=== PATIENT | male | born 1970 | race Caucasian/White ===

== ENCOUNTER 2021-04-15 09:35 | Outpatient (CLI) | payer BC, SELFPAY ==
--- NOTE | 2021-04-15 11:00 | NEURO_ITS ---
Impression: # Complains of right hand numbness. # Right Carpal Tunnel Syndrome. # Right ulnar neuropathy across the elbow. # Normal needle/EMG exam. Nerve Conduction Studies Anti Sensory Summary Table Stim Site NR Peak (ms) P-T Amp (?V) Site1 Site2 Delta-P (ms) Dist (cm) [place] (m/s) Right Median Anti Sensory (2-3nd Digit) Wrist 4.6 28.7 Wrist 2-3nd Digit 4.6 14.0 30 Wrist 5.7 27.3 Wrist 2-3nd Digit 4.6 14.0 30 Right Radial Anti Sensory (Base 1st Digit) Wrist 2.8 23.2 Wrist Base 1st Digit 2.8 0.0 Right Ulnar Anti Sensory (5th Digit) Wrist 2.7 43.3 Wrist 5th Digit 2.7 14.0 52 Motor Summary Table Stim Site NR Onset (ms) O-P Amp (mV) Site1 Site2 Delta-0 (ms) Dist (cm) [place] (m/s) Right Median Motor (Abd Poll Brev) Wrist 4.8 5.0 Elbow Wrist 5.1 29.0 57 Elbow 9.9 4.7 Right Ulnar Motor (Abd Dig Minimi) Wrist 3.0 6.9 A Elbow Wrist 5.9 30.0 51 A Elbow 8.9 4.6 B Elbow Wrist 4.4 22.0 50 B Elbow 7.4 2.3 F Wave Studies NR F-Lat (ms) L-R F-Lat (ms) Right Median (Mrkrs) (Abd Poll Brev) 29.77 Right Ulnar (Mrkrs) (Abd Dig Min) 28.13 EMG Side Muscle Nerve Root Ins Act Fibs Amp Dur Recrt Comment Right 1stDorInt Ulnar C8-T1 Nml Nml Nml Nml Nml Right Ext Indicis Radial (Post Int) C7-8 Nml Nml Nml Nml Nml Right Ext Digitorum Radial (Post Int) C7-8 Nml Nml Nml Nml Nml Right BrachioRad Radial C5-6 Nml Nml Nml Nml Nml Right PronatorTeres Median C6-7 Nml Nml Nml Nml Nml Right Abd Poll Brev Median C8-T1 Nml Nml Nml Nml Nml Right ABD Dig Min Ulnar C8-T1 Nml Nml Nml Nml Nml MTDD
== END 2021-04-15 09:36 | disposition home or self-care (01) ==
LOC: ANHNEURO 09:37
PROVIDERS: PCP Family Medicine; Visit Provider Family Medicine
DX: R20.0 Anesthesia of skin (principal); G56.01 Carpal tunnel syndrome, right upper limb; G56.21 Lesion of ulnar nerve, right upper limb
CPT/HCPCS: 95886; 95909

== ENCOUNTER → 2021-09-18 00:18 | Outpatient (CLI) | payer BC, SELFPAY ==
[2021-09-19 16:23] LABS: SARS-CoV-2 RNA PCR Negative
== END ==
PROVIDERS: PCP Family Medicine; Visit Provider Internal Medicine Gastroenterology
DX: Z01.812 Encounter for preprocedural laboratory examination (principal); Z20.822 Contact with and (suspected) exposure to COVID-19
CPT/HCPCS: C9803; U0003; U0005

== ENCOUNTER 2022-01-18 | Day surgery (SDC) | payer BC, SELFPAY ==
[2021-09-06 14:49] VITALS: BMI 28.4
[2021-12-30 13:07] VITALS: BMI 28.4
--- NOTE | 2022-01-11 10:01 | PC.NURSE ---
Patient called and Informed of the new guidelines regarding screening for covid and illness prior to coming in for procedure and if necessary pt will be rapid swabbed on arrival to Endoscopy. Instructed to call prior to preparation of colonoscopy if having any symptoms or any member of household having a positive test in past 2 weeks. Pt. verbalizes understanding.
[2022-01-18 09:47] VITALS: BP 132/95; PULSE 77; RESP 20; TEMP 36.5; O2SAT 99
[2022-01-18] MEDS: LACTATED RINGERS 1,000 ML 150 ML IV CONT (10:00)
--- NOTE | 2022-01-18 10:15 | PM.HPGS ---
History of Present Illness History of Present Illness Consent: Risks, benefits, and alternatives have been discussed and questions answered. Patient agrees to proceed with procedure. Chief complaint: neoplasm screening Narrative: Orlando Evans is a 51 year old male here for first screening colonoscopy Review of Systems Constitutional: Constitutional: Denies headache(s) and Denies weakness Eyes: Eyes: Denies blurry vision ENT: Reports Normal hearing present, Denies headache(s) and Denies neck pain Cardiovascular: Cardiovascular: Denies chest pain and Denies dyspnea Respiratory: Respiratory: Denies dyspnea Gastrointestinal: Gastrointestinal: Reports no additional gastrointestinal complaints Genitourinary: Genitourinary: Denies dysuria Musculoskeletal: Musculoskeletal: Denies neck pain Integumentary/Breasts: Skin/Breast: Denies dry skin Neurologic: Reports Normal hearing present, Denies headache(s) and Denies weakness Psychiatric: Psychiatric: Denies anxiety Endocrine: Endocrine: Denies change in body appearance Hematologic/Lymphatic: Hematologic/Lymphatic: Denies easy bleeding Allergic/Immunologic: Allergic/Immunologic: Denies urticaria PMFSH Past Medical History Medical History (Updated 01/18/22 @ 10:15 by Mark Dillon MD) Chronic low back pain Colon cancer screening Hx of lichen planus Hyperlipidemia Surgical History Surgical History History of tonsillectomy (~1977) Family History Family History Other Family history of Parkinson's disease Family history of aortic aneurysm Family history of hypercholesterolemia Social History Social History Smoking status: Never smoker Second hand tobacco smoke exposure: No Alcohol intake: current Drinks per week: 8 Substance use: never Substance use type: does not use Living arrangements: with family Additional living arrangements comments: and Children Gender identity (if verbalized by the patient): Male Sexual Orientation (if Verbalized by the Patient): Straight or Heterosexual Spiritual care concerns: No Meds Home Medications and Allergies Home Medications Medication Instructions Recorded Confirmed Type hydrocortisone 2.5 % topical cream 1 applic TOPICAL BID #20 g 08/11/21 12/30/21 Rx Allergies Allergy/AdvReac Type Severity Reaction Status Date / Time No Known Allergies Allergy Verified 01/18/22 09:46 Vital Signs Vital Signs - 24 hr 01/18/22 09:47 Temperature 97.7 F Pulse Rate 77 Respiratory Rate 20 Blood Pressure 132/95 H Pulse Oximetry 99 Exam Const: General: comfortable and no acute distress HENMT: General nose exam: Normal nares present Eyes: General: appearance normal, both eyes and all related structures Neck: Neck: no JVD Resp: Auscultation: clear to auscultation bilaterally Cardio: Rate: regular rate Rhythm: regular rhythm GI: Inspection: non-distended GI Palp: Yes Soft to palpation Skin: General skin exam: normal color Neuro: General: gait normal Speech: normal speech Extrem: General: normal to inspection Psych: Mental Status: mental status grossly normal Assessment and Plan Assessment and plan (1) Colon cancer screening: Code(s): Z12.11 - Encounter for screening for malignant neoplasm of colon Status: Acute Assessment and Plan: colonoscopy
--- NOTE | 2022-01-18 10:24 | P.PNAN_ITS ---
Anes - Initial Pre Proc Eval Procedure: Operation Date: 01/18/22 11:00 Proposed Procedures p Screening Colonoscopy - Mark Dillon MD Date/Time: 01/18/22 10:24 Surgeon: Mark Dillon MD Pre Op Diagnosis: neoplasm screening Patient Data Age: 51 Gender: M Height: 1.83 m Weight: 93.9 kg Last Vital Signs Temp 97.7 F 01/18/22 09:47 Pulse 77 01/18/22 09:47 Resp 20 01/18/22 09:47 BP 132/95 H 01/18/22 09:47 Pulse Ox 99 01/18/22 09:47 Allergies Allergy/AdvReac Type Severity Reaction Status Date / Time No Known Allergies Allergy Verified 01/18/22 09:46 Home Medications Medication Instructions Recorded Confirmed Type hydrocortisone 2.5 % topical cream 1 applic TOPICAL BID #20 g 08/11/21 12/30/21 Rx Patient hx anesthesia problems: none Family hx anesthesia problems: none Results Review: All pre-operative results and documents have been reviewed as part of the pre-operative evaluation. [facility] Past Medical History Medical History (Updated 01/18/22 @ 10:15 by Mark Dillon MD) Chronic low back pain Colon cancer screening Hx of lichen planus Hyperlipidemia Surgical History Surgical History History of tonsillectomy (~1977) Family History Family History Other Family history of Parkinson's disease Family history of aortic aneurysm Family history of hypercholesterolemia Social History Social History Smoking status: Never smoker Second hand tobacco smoke exposure: No Alcohol intake: current Drinks per week: 8 Substance use: never Substance use type: does not use Living arrangements: with family Additional living arrangements comments: and Children Gender identity (if verbalized by the patient): Male Sexual Orientation (if Verbalized by the Patient): Straight or Heterosexual Spiritual care concerns: No Anes - Eval Final PreProcedure Day of Procedure 01/18/22 10:24 Patient weight: normal Heart: regular rate and rhythm Lungs: clear to auscultation Airway: Mallampati scale class II Neurological: alert and oriented Last oral intake: >/= 8 hours ASA classification: II Emergent: no Anesthetic plan: proceed Anesthesia type and monitoring: general GIVS and standard monitoring Results Review: All pre-operative results and documents have been reviewed as part of the pre-operative evaluation. Informed Consent: The patient's anesthetic plan and its attendant risks and benefits were discussed with the patient/family/POA. Questions were solicited and answers provided to the satisfaction of the patient/family/POA.
[2022-01-18 10:39] VITALS: BP 107/71; PULSE 74; RESP 16; O2SAT 94
[2022-01-18 10:49] VITALS: BP 109/75; PULSE 68; RESP 15; O2SAT 96
== END 2022-01-18 11:10 | disposition home or self-care (01) ==
PROVIDERS: PCP Family Medicine; Visit Provider Internal Medicine Gastroenterology
PROC: 0DJD8ZZ Inspection of Lower Intestinal Tract, Via Natural or Artificial Opening Endoscopic (ICD-10-PCS; CPT 45378; principal; 2022-01-18 11:00)
DX: Z12.11 Encounter for screening for malignant neoplasm of colon (principal); K57.30 Diverticulosis of large intestine without perforation or abscess without bleeding; K64.8 Other hemorrhoids; K63.5 Polyp of colon; L43.9 Lichen planus, unspecified; E78.5 Hyperlipidemia, unspecified
CPT/HCPCS: 45385; 88305; J2001; J2704; J7120

== ENCOUNTER 2022-07-26 09:29 | Outpatient (CLI) | payer BC, SELFPAY ==
[2022-07-26 15:20] LABS: Kit Draw Collected
== END 2022-07-26 09:30 | disposition home or self-care (01) ==
LOC: ANHGOSHLAB 09:32
PROVIDERS: PCP Family Medicine; Visit Provider Family Medicine
DX: Z00.00 Encounter for general adult medical examination without abnormal findings (principal); E78.5 Hyperlipidemia, unspecified; Z13.29 Encounter for screening for other suspected endocrine disorder; E55.9 Vitamin D deficiency, unspecified; Z12.5 Encounter for screening for malignant neoplasm of prostate
CPT/HCPCS: 36415

== ENCOUNTER 2023-07-28 09:05 | Outpatient (CLI) | payer BC, SELFPAY ==
[2023-07-28 18:40] LABS: Basophils Absolute Auto 0.1 K/mm3 (0.0-0.1); Basophils Percent Auto 1.3 % (0.2-1.2); Eosinophils Absolute Auto 0.2 K/mm3 (0-0.3); Eosinophils Percent Auto 3.6 % (0-4.4); Hemoglobin 15.2 g/dL (14.0-18.0); Immature Granulocyte Absolute 0.01 K/mm3 (0.00-0.031); Immature Granulocyte Percent A 0.2 % (0-0.5); Lymphocytes Absolute Auto 1.53 K/mm3 (0.9-3.2); Lymphocytes Percent Auto 32.5 % (18.3-44.2); Mean Corpuscular Hemoglobin 31.3 pg (26-34); Mean Corpuscular Volume 94.8 fl (80-100); Mean Platelet Volume 10.7 fl (7.4-10.4); Monocytes Absolute Auto 0.5 K/mm3 (0.1-0.6); Neutrophils Absolute Auto 2.5 K/mm3 (1.3-6.7); Neutrophils Percent Auto 52.4 % (45.5-73.1); Platelet Count Result 246 k/mm3 (150-375); Red Blood Count 4.85 M/mm3 (4.6-6.20); Red Cell Distribution Width 12.3 % (11.5-14.5); White Blood Count 4.7 K/mm3 (4.5-10.0)
[2023-07-28 18:58] LABS: Alanine Aminotransferase 29 U/L (6-50); Albumin Level 4.8 g/dL (3.5-5.1); Alkaline Phosphatase 86 U/L (38-126); Anion Gap 12 mmol/L (8-16); Aspartate Amino Transferase 33 U/L (17-59); Blood Urea Nitrogen 17 mg/dL (9-20); Calcium 9.5 mg/dL (8.4-10.2); Carbon Dioxide 25 mmol/L (22-30); Chloride 102 mmol/L (98-107); Cholesterol 290 mg/dL (0-200); Estimated Glomerular Filt Rate 53; Glucose 79 mg/dL (65-110); HDL Direct 30 mg/dL; Potassium 4.5 mmol/L (3.4-5.0); Sodium 139 mmol/L (137-145); Triglycerides 386 mg/dL (<150)
[2023-07-28 19:01] LABS: Vitamin D 25 Hydroxy 28.5 ng/mL
[2023-07-28 19:18] LABS: LDL Cholesterol Direct 161 mg/dL
[2023-07-28 19:40] LABS: Prostate Specific Antigen 0.9 ng/mL (< OR = 4.0)
== END 2023-07-28 09:06 | disposition home or self-care (01) ==
LOC: ANHGOSHLAB 09:06
PROVIDERS: PCP Family Medicine; Visit Provider Nurse Practitioner Family
DX: Z00.00 Encounter for general adult medical examination without abnormal findings (principal); E55.9 Vitamin D deficiency, unspecified; Z12.5 Encounter for screening for malignant neoplasm of prostate; E78.5 Hyperlipidemia, unspecified; Z79.899 Other long term (current) drug therapy; E53.8 Deficiency of other specified B group vitamins; Z13.29 Encounter for screening for other suspected endocrine disorder
CPT/HCPCS: 36415; 80053; 80061; 82306; 82607; 84153; 84443; 85025; G0103

== ENCOUNTER 2025-07-29 08:30 | Outpatient (CLI) | payer BC, SELFPAY ==
[2025-07-29 13:04] LABS: Hematocrit 46.2 % (42.0-52.0); Hemoglobin 15.2 g/dL (14.0-18.0); Immature Granulocyte Percent A 0.2 % (0-0.5); Lymphocytes Absolute Auto 1.47 K/mm3 (0.9-3.2); Mean Corpuscular HGB Conc 32.9 g/dl (32-36); Mean Corpuscular Hemoglobin 31.5 pg (26-34); Mean Corpuscular Volume 95.9 fl (80-100); Nucleated Red Blood Cells Absolute Auto 0.000 K/mm3 (0.0-0.012); Nucleated Red Blood Cells Perc 0.0 % (0.0-0.2); Platelet Count Result 223 k/mm3 (150-375); Red Blood Count 4.82 M/mm3 (4.6-6.20); White Blood Count 5.0 K/mm3 (4.5-10.0)
[2025-07-29 13:26] LABS: Alanine Aminotransferase 25 U/L (6-50); Albumin Level 4.7 g/dL (3.5-5.1); Alkaline Phosphatase 93 U/L (38-126); Anion Gap 9 mmol/L (4-12); Aspartate Amino Transferase 41 U/L (17-59); Bilirubin,Total 1.7 mg/dL (0.2-1.3); Blood Urea Nitrogen 16 mg/dL (9-20); CRP < 0.5 mg/dL (<1.0); Calcium 9.6 mg/dL (8.4-10.2); Carbon Dioxide 27 mmol/L (22-30); Chloride 103 mmol/L (98-107); Cholesterol 308 mg/dL (0-200); Estimated Glomerular Filt Rate 59; Glucose 84 mg/dL (65-110); HDL Direct 37 mg/dL; Magnesium 2.2 mg/dL (1.6-2.3); Potassium 4.7 mmol/L (3.4-5.0); Sodium 139 mmol/L (137-145); Total Protein 8.1 g/dL (6.3-8.2); Triglycerides 308 mg/dL (<150)
[2025-07-29 13:49] LABS: Thyroid Stimulating Hormone Reflex 2.900 uIU/mL (0.465-4.68)
[2025-07-29 13:59] LABS: Prostate Specific Antigen 0.7 ng/mL (< OR = 4.0)
[2025-07-29 14:19] LABS: Vitamin B12 416.0 pg/mL (239-931)
[2025-07-29 16:30] LABS: Hemoglobin A1C 5.2 % (<5.7)
== END 2025-07-29 08:31 | disposition home or self-care (01) ==
LOC: ANHGOSHLAB 08:31
PROVIDERS: PCP Family Medicine; Visit Provider Nurse Practitioner Family
DX: Z00.00 Encounter for general adult medical examination without abnormal findings (principal); E78.5 Hyperlipidemia, unspecified; E55.9 Vitamin D deficiency, unspecified; R73.9 Hyperglycemia, unspecified; M19.019 Primary osteoarthritis, unspecified shoulder; Z12.5 Encounter for screening for malignant neoplasm of prostate
CPT/HCPCS: 36415; 80053; 80061; 82306; 82607; 83036; 83735; 84153; 84443; 85025; 86140; G0103

== ENCOUNTER 2025-08-04 10:24 | Outpatient (CLI) | payer BC, SELFPAY ==
--- NOTE | ~2025-08-04 | XR_ITS ---
EXAMINATION: XR shoulder LT min 2V, 08/04/2025 10:32 [facility] HISTORY: Pain in left shoulder x 3-4 months, no inj, no surg COMPARISON: No comparisons available. Findings: No acute fracture or malalignment. No significant degenerative changes. Soft tissues unremarkable. Impression: No acute fracture or malalignment. Reviewed, dictated and finalized at location P. [facility] Impression: No acute fracture or malalignment.
== END 2025-08-04 10:25 | disposition home or self-care (01) ==
LOC: GOSHIMG 10:24
PROVIDERS: PCP Nurse Practitioner Family; Visit Provider Nurse Practitioner Family
DX: M25.512 Pain in left shoulder (principal)
CPT/HCPCS: 73030